=== PATIENT | male | born 1955 | race Caucasian/White ===

== ENCOUNTER 2020-06-04 10:09 | Emergency (ER) | payer BC ==
[2020-06-04] MEDS ORDERED: Bacitracin Oint 1 GM U/D Packet TOP ONE (10:23)
[2020-06-04] MEDS ORDERED: Diphtheria,Pertussis(Acell),Tetanus Vaccine 0.5 ML SDV IM ONE (10:23)
[2020-06-04] MEDS ORDERED: Lidocaine 1% with EPINEPHrine 1:100,000 50 ML MDV SUBCUT STA (10:24)
[2020-06-04 10:27] VITALS: BP 167/100; PULSE 71
--- NOTE | 2020-06-04 10:29 | EDM.PDOC ---
ED HPI GENERAL MEDICAL PROBLEM - General Chief Complaint: Laceration Stated Complaint: CHAINSAW HIT LEFT KNEE Time Seen by Provider: 06/04/20 10:24 Source of Information: Reports: Patient History Limitations: Reports: No Limitations - History of Present Illness INITIAL COMMENTS - FREE TEXT/NARRATIVE: 64 yo male from [place] presents after lacerating his L anterior knee with a chain saw before arrival. He was able to walk without issue after the injury. His last tetanus was in 2008. Onset: Today, Sudden Onset Date: 06/04/20 Onset Time: 10:00 Duration: Minutes: Location: Reports: Lower Extremity, Left Quality: Reports: Burning Severity: Moderate Improves with: Reports: Rest Worsens with: Reports: Other (touching wound) Context: Reports: Trauma Associated Symptoms: Reports: No Other Symptoms Treatments INTERNET MANAGER: Reports: Other (see below) (wound wrapped) - Related Data Allergies Allergy/AdvReac Type Severity Reaction Status Date / Time No Known Allergies Allergy Verified 06/04/20 10:17 Home Meds: Home Meds Aspirin 81 mg PO DAILY 05/06/16 [History] Lisinopril 10 mg PO DAILY 05/06/16 [History] Metoprolol Succinate 25 mg PO DAILY 05/06/16 [History] Simvastatin [Zocor] 20 mg PO DAILY 05/06/16 [History] Tamsulosin HCl [Flomax] 0.4 mg PO DAILY 06/04/20 [History] Past Medical History Cardiovascular History: Reports: High Cholesterol, Hypertension, Other (See Below) Other Cardiovascular History: hemangiomas inner right leg, liver and kidney, being followed by primary dr Genitourinary History: Reports: Renal Calculus - Past Surgical History Cardiovascular Surgical History: Reports: Coronary Artery Stent Musculoskeletal Surgical History: Reports: Arthroscopic Knee ED ROS GENERAL - Review of Systems Review Of Systems: See Below Constitutional: Reports: No Symptoms Musculoskeletal: Reports: No Symptoms Skin: Reports: Wound (L anterior knee) Neurological: Reports: No Symptoms ED EXAM, SKIN/RASH Exam: See Below Exam Limited By: No Limitations General Appearance: Alert, WD/WN, No Apparent Distress Neurological: Alert, Oriented, CN II-XII Intact, Normal Cognition, No Motor/Sensory Deficits Psychiatric: Normal Affect, Normal Mood Skin: Warm, Dry, Normal Color, No Rash, Wound/Incision (horizontal laceration of the anterior L knee). No: Intact, Ecchymosis Location, Skin: Lower Extremity, Left Characteristics: Linear Associated features: Tenderness. No: Warmth, Swelling, Induration, Lymphangitis ED SKIN PROCEDURES - Laceration/Wound Repair Left Anterior Knee Appearance: Subcutaneous, Linear, Mildly Contaminated Distal NVT: Neuro & Vascular Intact, No Tendon Injury Anesthetic Type: Local Local Anesthesia - Lidocaine (Xylocaine): 1% with EPI Local Anesthetic Volume: Other (10 ml) Skin Prep: Saline Exploration/Debridement/Repair: Wound Explored, Explored to Base Closed with: Sutures Lac/Wound length In cm: 5.9 Suture Size: 4-0 # of Sutures: 7 Suture Type: Nylon, Interrupted, Mattress Drain Placement: No Sterile Dressing Applied: Nurse Tetanus Status Addressed: Yes Complications: No Course - Orders/Labs/Meds Orders: Active Orders 24 hr Category Date Time Status Vaccines to be Administered [RC] PER UNIT ROUTINE Care 06/04/20 10:23 Ordered Bacitracin [Bacitracin Oint 1 GM] Med 06/04/20 10:23 Once 1 dose TOP ONETIME ONE Diphth,Pertuss(Acell),Tet Vac [Adacel] Med 06/04/20 10:23 Once 0.5 ml IM .ONCE ONE Lidocaine 1% w/EPINEPHrine [Xylocaine 1% with Med 06/04/20 10:24 Stat EPINEPHrine 1:100,000] 10 ml SUBCUT NOW STA Departure - Departure Time of Disposition: 11:25 Disposition: Home, Self-Care 01 Condition: Fair Clinical Impression: Laceration of knee, left Qualifiers: Encounter type: initial encounter Qualified Code(s): S81.012A - Laceration without foreign body, left knee, initial encounter - Discharge Information *PRESCRIPTION DRUG MONITORING PROGRAM REVIEWED*: No *COPY OF PRESCRIPTION DRUG MONITORING REPORT IN PATIENT MADDY: No Instructions: Laceration Care, Adult, [id number] Referrals: Andriy Barron MD [Primary Care Provider] - Additional Instructions: Clean your wound twice daily with soap and water. Dry. Apply antibiotic ointment and a new dressing. Avoid left knee flexion of more than about 30 degrees for about 2 weeks. Recheck for signs of infection. Take acetaminophen as needed for pain relief. Stitches out in about 10 days in the clinic. Keep wound clean for about 3 days after which you can go into a bhandari if you wish. - My Orders Last 24 Hours: My Active Orders 06/04/20 10:23 Vaccines to be Administered [RC] PER UNIT ROUTINE Bacitracin [Bacitracin Oint 1 GM] 1 dose TOP ONETIME ONE Diphth,Pertuss(Acell),Tet Vac [Adacel] 0.5 ml IM .ONCE ONE 06/04/20 10:24 Lidocaine 1% w/EPINEPHrine [Xylocaine 1% with EPINEPHrine 1:100,000] 10 ml SUBCUT NOW STA - Assessment/Plan Last 24 Hours: My Active Orders 06/04/20 10:23 Vaccines to be Administered [RC] PER UNIT ROUTINE Bacitracin [Bacitracin Oint 1 GM] 1 dose TOP ONETIME ONE Diphth,Pertuss(Acell),Tet Vac [Adacel] 0.5 ml IM .ONCE ONE 06/04/20 10:24 Lidocaine 1% w/EPINEPHrine [Xylocaine 1% with EPINEPHrine 1:100,000] 10 ml SUBCUT NOW STA
== END 2020-06-04 11:29 | disposition home or self-care (01) ==
LOC: JP.ED 10:09
DX: S81.012A Laceration without foreign body, left knee, initial encounter (principal); E78.00 Pure hypercholesterolemia, unspecified; I10 Essential (primary) hypertension; Z79.82 Long term (current) use of aspirin; Z79.899 Other long term (current) drug therapy; Z23 Encounter for immunization; W29.3XXA Contact with powered garden and outdoor hand tools and machinery, initial encounter
CPT/HCPCS: 12002; 90471; 90715; 99282

== ENCOUNTER 2024-02-03 11:51 | Emergency (ER) | payer BC, MEDICARE ==
[2024-02-03] MEDS: Ondansetron 4 MG Tab.DIS PO ONE (13:07)
[2024-02-03] MEDS: Ketorolac 30 MG/ML SDV IM ONE (13:07)
[2024-02-03 13:30] LABS: APPEARANCE,URINE SLIGHTLY CLOUDY (CLEAR); BILIRUBIN,URINE NEGATIVE (NEGATIVE); COLOR,URINE YELLOW (YELLOW); GLUCOSE,URINE NEGATIVE (NEGATIVE); KETONES,URINE NEGATIVE (NEGATIVE); LEUKOCYTE ESTERASE,URINE NEGATIVE (NEGATIVE); NITRITE,URINE NEGATIVE (NEGATIVE); OCCULT BLOOD,URINE MODERATE (NEGATIVE); PROTEIN,URINE 30 mg/dL (NEGATIVE)
[2024-02-03 13:55] LABS: AMORPHOUS SEDIMENT,URINE RARE; BACTERIA,URINE NOT SEEN; EPITHELIAL CELLS,URINE NOT SEEN; MUCUS,URINE RARE; WBC,URINE 0-5 (0-5)
[2024-02-03 16:42] VITALS: BP 125/73; PULSE 67
== END 2024-02-03 16:35 | disposition home or self-care (01) ==
LOC: JP.ED 11:51
DX: N13.2 Hydronephrosis with renal and ureteral calculous obstruction (principal); E78.00 Pure hypercholesterolemia, unspecified; I10 Essential (primary) hypertension; Z79.82 Long term (current) use of aspirin; Z79.899 Other long term (current) drug therapy; Z86.19 Personal history of other infectious and parasitic diseases
CPT/HCPCS: 74176; 81001; 96372; 99284; J1885; Q0162